=== PATIENT | male | born 1995 | race Caucasian/White ===

== ENCOUNTER 2018-06-07 12:17 | Emergency (ER) | payer OTHER ==
[2018-06-07 12:46] VITALS: BP 111/88; PULSE 111; RESP 18; TEMP 98; O2SAT 100
[2018-06-07] MEDS ORDERED: Naproxen 500 MG TAB PO STA (13:04)
--- NOTE | 2018-06-07 13:59 | RAD ---
Date of service: 06/07/2018 PROCEDURE: Right Knee Radiographs. HISTORY: KNEE INJURY COMPARISON: None. FINDINGS: BONES: Three views of the right knee were obtained. Patella appears in normal location. No joint space narrowing is seen. No fracture is noted. No lytic process is seen. Tibial plateaus and proximal fibula are intact. JOINTS: Normal. No osteoarthritis. JOINT EFFUSION: None. OTHER FINDINGS: Mild induration is seen in Hoffa's infrapatellar fat pad. Minimal prepatellar bursitis or swelling is not excluded. IMPRESSION: No fracture. No joint effusion. Please see above.
--- NOTE | 2018-06-07 14:10 | ED PDOC ---
Lower Extremity Pain/Injury Time Seen by Provider: 06/07/18 13:04 Chief Complaint (Nursing): Lower Extremity Problem/Injury Chief Complaint (Provider): RIGHT KNEE INJURY History Per: Patient (23 Y/O MALE HERE WITH RIGHT KNEE INJURY THAT OCCURRED TODAY DURING SOCCER GAME WHEN HE WAS STRUCK ON SIDE OF LEG BY ANOTHER PLAYER. ADMITS LANDING ON KNEE AND HEARD "POP" AT TIME. UNABLE TO BEAR WEIGHT ON KNEE.) Past Medical History Reviewed: Historical Data, Nursing Documentation, Vital Signs Vital Signs: Last Vital Signs Temp 98 F 06/07/18 12:43 Pulse 111 H 06/07/18 12:43 Resp 18 06/07/18 12:43 BP 111/88 06/07/18 12:43 Pulse Ox 100 06/07/18 12:43 - Family History Family History: States: No Known Family Hx - Home Medications Home Medications: Ambulatory Orders Medication Instructions Recorded Naproxen 375 mg PO Q8 PRN #21 tablet 06/07/18 - Allergies Allergies/Adverse Reactions: Allergies Allergy/AdvReac Type Severity Reaction Status Date / Time No Known Allergies Allergy Verified 06/07/18 12:42 Review of Systems ROS Statement: Except As Marked, All Systems Reviewed And Found Negative Physical Exam - Reviewed Nursing Documentation Reviewed: Yes Vital Signs Reviewed: Yes - Physical Exam Appears: Positive for: Well, Non-toxic, No Acute Distress Head Exam: Positive for: ATRAUMATIC, NORMAL INSPECTION, NORMOCEPHALIC Skin: Positive for: Normal Color, Warm, DRY Eye Exam: Positive for: EOMI, Normal appearance, PERRL ENT: Positive for: Normal ENT Inspection Neck: Positive for: Normal, Painless ROM Cardiovascular/Chest: Positive for: Regular Rate, Rhythm Respiratory: Positive for: CNT, Normal Breath Sounds Gastrointestinal/Abdominal: Positive for: Normal Exam, Soft Back: Positive for: Normal Inspection Extremity: Positive for: Normal ROM, Other (MINIMAL EFFUSION. NONTENDER KNEE ON EXAM.) Neurologic/Psych: Positive for: Alert, Oriented - ECG O2 Sat by Pulse Oximetry: 100 - Progress ED Course And Treament: NAPROSEN 500MG X 1 DOSE KNEE XRY: NO FX PLACED IN KNEE IMMOBILIZER AND GIVEN CRUTCH INSTRUCTIONS Disposition - Clinical Impression Clinical Impression: Knee injury - Patient ED Disposition Is Patient to be Admitted: No - Disposition Referrals: Kailash Breen MD [Staff Provider] - Disposition: Routine/Home Disposition Time: 14:12 Condition: FAIR Prescriptions: Naproxen 375 mg PO Q8 PRN #21 tablet PRN Reason: Pain, Moderate (4-7) Instructions: Knee Pain (DC) Forms: [facility] ED School/Work Excuse
== END 2018-06-07 14:19 | disposition home or self-care (01) ==
LOC: H.ER 12:17
DX: S89.91XA Unspecified injury of right lower leg, initial encounter (principal); W50.0XXA Accidental hit or strike by another person, initial encounter; Y93.66 Activity, soccer